=== PATIENT | male | born 1970 | race Caucasian/White ===

== ENCOUNTER 2017-03-29 11:53 | Emergency (ER) | payer MEDICAID, OTHER ==
[~2017-03-29] VITALS: Wt 93.5 kg
[~2017-03-29 11:53] MED LIST: DOCU-144 PO; HYDR-3498 PO
--- NOTE | 2017-03-29 13:17 | ERD ---
ER Documentation Chief Complaint Date/Time DATE: 03/29/17 TIME: 13:13 Chief Complaint LEFT ARM NUMBNESS AND TINGLING WITH NO TRAUMA. NO CP OR SOB. NO NEURO DEF HPI This is a 46-year-old male resenting to emergency department of left shoulder/ neck pain with left hand numbness and tingling 1 week. Patient states symptoms have been worsening. No recent fall or trauma to area. No loss of sensation. No laceration or rash. Patient has full mobility to left arm. No fevers or chills. No chest pain, shortness breath or difficulty breathing. No chest pressure. Patient did not take any medication at home for this. ROS All systems reviewed and are negative except as per history of present illness. Medications Home Meds Active Scripts Famotidine* (Pepcid*) 20 Mg Tablet, 20 MG PO BID for 4 Days, TAB Prov:LONG JAIMES NP 03/29/17 Hydrocodone/Acetaminophen ([place] 5-325 Tablet) 1 Each Tablet, 1 EACH PO Q6, #7 TAB Prov:LONG JAIMES NP 03/29/17 Ibuprofen* (Motrin*) 600 Mg Tab, 600 MG PO Q6, #15 TAB Prov:LONG JAIMES NP 03/29/17 Docusate Sodium* (Colace*) 100 Mg Capsule, 100 MG PO BID, #30 CAP Prov:KADE JOHNSON PA-C 01/16/16 Hydrocodone Bit-Acetaminophen* ([place]*) 5-325 Mg Tab, 1 TAB PO Q6 Y for PAIN, # 7 TAB Prov:KADE JOHNSON PA-C 01/16/16 Allergies Allergies: Coded Allergies: No Known Allergy (Unverified , 01/16/16) PMhx/Soc History of Surgery: Yes (testicular surgery) Anesthesia Reaction: No Hx Neurological Disorder: No Hx Respiratory Disorders: No Hx Cardiac Disorders: No Hx Psychiatric Problems: No Hx Miscellaneous Medical Probl: No Hx Alcohol Use: No Hx Substance Use: No Hx Tobacco Use: Yes Physical Exam Vitals Vital Signs Date Time Temp Pulse Resp B/P Pulse Ox O2 Delivery O2 Flow Rate FiO2 03/29/17 15:40 98.2 67 21 124/83 100 Room Air 03/29/17 11:56 98.6 79 20 168/98 97 Physical Exam Const: Alert, no acute distress Head: Atraumatic Eyes: Normal Conjunctiva ENT: Normal External Ears, Nose and Mouth. Neck: Full range of motion..~ No meningismus. Resp: Clear to auscultation bilaterally Cardio: Regular rate and rhythm, no murmurs Abd: Soft, non tender, non distended. Normal bowel sounds Skin: No petechiae or rashes Back: No midline or flank tenderness Ext: No edema. Patient has full mobility of left shoulder and neck. Full extension and flexion. Full mobility to left elbow and left wrist. Able to supinate and pronate without difficulty. Radial pulses 2+ bilaterally. Capillary refill less than 3 seconds. Neur: Awake and alert Psych: Normal Mood and Affect Result Diagram: 03/29/17 1320 03/29/17 1320 Results 24 hrs Laboratory Tests Test 03/29/17 13:20 White Blood Count 9.610^3/ul Red Blood Count 5.1510^6/ul Hemoglobin 15.2g/dl Hematocrit 45.3% Mean Corpuscular Volume 88.0fl Mean Corpuscular Hemoglobin 29.5pg Mean Corpuscular Hemoglobin Concent 33.6g/dl Red Cell Distribution Width 13.1% Platelet Count 84160^3/UL Mean Platelet Volume 9.5fl Neutrophils % 38.6% Lymphocytes % 46.6% Monocytes % 6.0% Eosinophils % 8.2% Basophils % 0.4% Nucleated Red Blood Cells % 0.0/100WBC Neutrophils # 3.710^3/ul Lymphocytes # 4.510^3/ul Monocytes # 0.610^3/ul Eosinophils # 0.810^3/ul Basophils # 0.010^3/ul Nucleated Red Blood Cells # 0.010^3/ul Sodium Level 144mmol/L Potassium Level 4.0mmol/L Chloride Level 105mmol/L Carbon Dioxide Level 24mmol/L Anion Gap 19 Blood Urea Nitrogen 10mg/dl Creatinine 0.82mg/dl Glucose Level 100mg/dl Calcium Level 9.3mg/dl Troponin I < 0.012ng/ml Current Medications Medications (Trade) Dose Ordered Sig/Yanci Route PRN Reason Start Time Stop Time Status Last Admin Dose Admin Ibuprofen (Motrin) 600 mg ONCE ONCE PO 03/29/17 13:30 03/29/17 13:31 DC 03/29/17 13:43 Acetaminophen/ Hydrocodone Bitart ([place] (5/325)) 1 tab ONCE ONCE PO 03/29/17 13:30 03/29/17 13:31 DC 03/29/17 13:43 Miscellaneous Medication (Gi Cocktail (2)) 40 ml ONCE ONCE PO 03/29/17 15:00 03/29/17 15:01 DC 03/29/17 15:01 Lorazepam (Ativan) 0.5 mg ONCE ONCE PO 03/29/17 15:00 03/29/17 15:01 DC 03/29/17 15:01 Procedures/MDM [place] [id number] [facility] Main Line: [phone] DIAGNOSTIC IMAGING REPORT Patient: NICK TRAMMELL : 1970 Age: 46 Sex: M MR #: [id number] DOS: 03/29/17 1301 Ordering MD: LONG JAIMES NP Location: [facility] Room/Bed: PROCEDURE: XR Cervical Spine. CLINICAL INDICATION: Neck pain TECHNIQUE: AP, lateral, and open-mouth odontoid views of the cervical spine were performed. The images were reviewed on a PACS workstation. COMPARISON: None. FINDINGS: The cervical spine is aligned without evidence of fractures or subluxations. Vertebral body and disk heights appear within normal limits. No acute fractures or subluxations. Odontoid base and lateral masses are aligned. The prevertebral soft tissues are normal. No radiopaque foreign bodies are identified. IMPRESSION: 1. Unremarkable cervical spine x-rays series. [place] [address] [facility] Main Line: [phone] DIAGNOSTIC IMAGING REPORT Patient: NICK TRAMMELL : 1970 Age: 46 Sex: M MR #: [id number] DOS: 03/29/17 1301 Ordering MD: LONG JAIMES NP Location: [facility] Room/Bed: PROCEDURE: XR Shoulder. CLINICAL INDICATION: Left shoulder pain. TECHNIQUE: Three views of the left shoulder are available for review. COMPARISON: None available FINDINGS: The osseous structures, articular spaces, and surrounding soft tissues of the left shoulder are intact. No acute fracture or dislocation is seen. The glenohumeral joint is unremarkable. The acromioclavicular joint is grossly unremarkable. The visualized portions of the left clavicle and upper left rib cage are equally unremarkable. IMPRESSION: 1. Unremarkable left shoulder x-ray series. 2. No acute fracture or dislocation is seen. [place] [address] [facility] Main Line: [phone] DIAGNOSTIC IMAGING REPORT Patient: NICK TRAMMELL : 1970 Age: 46 Sex: M MR #: [id number] DOS: 03/29/17 0000 Ordering MD: LONG JAIMES NP Location: [facility] Room/Bed: PROCEDURE: XR Chest. CLINICAL INDICATION: Chest pain TECHNIQUE: Single frontal chest x-ray. COMPARISON: None. FINDINGS: The lungs are clear of acute infiltrates, edema, effusions, or masses.. The cardiomediastinal silhouette is unremarkable. The osseous structures are intact. IMPRESSION: No acute cardiopulmonary disease. MDM: This is a 46-year-old male presenting to emergency department with left shoulder/neck pain and numbness and tingling to left hand. Physical exam is overall unremarkable. Vital signs are stable. Chest x-ray reviewed by radiologist as no acute cardiopulmonary disease. X-ray left shoulder reviewed by radiologist is unremarkable. No acute fracture dislocation is seen. X-ray cervical spine reviewed by radiologist is unremarkable. Patient given ibuprofen and [place] p.o. while in the ED. Upon reassessment, patient continues to have severe pain. Consulted Dr. Blair regarding this patient who also examined patient at bedside. CBC shows no significant anemia or infection. BMP shows no significant electrolyte imbalance. Troponin is negative. Dr. Blair suggested giving patient GI cocktail and Ativan. Upon reassessment, patient states pain is now tolerable. Differential diagnosis includes but not limited to pneumonia, bronchitis, pleurisy, costochondritis, gastroesophageal reflux,musculoskeletal chest pain and esophageal spasm. Low suspicion for acute coronary syndrome, pulmonary embolism, pneumothorax, aortic dissection and myocardial infarction. Patient is appropriate for outpatient management and will be discharged as stable. Patient was given prescription for ibuprofen, [place] and Pepcid. Instructed patient to follow up with primary care provider in the next 24-48 hours. Return to ED for worsening pain, abdominal pain, vomiting, diarrhea, high fever or any new or worsening symptoms. Patient verbalizes understanding. All questions answered at discharge. Departure Diagnosis: Primary Impression: Arm paresthesia, left Condition: Stable LONG JAIMES NP Mar 29, 2017 13:17
[2017-03-29] MEDS ORDERED: IBUPROFEN 600 MG TAB PO ONE (13:30)
[2017-03-29] MEDS ORDERED: HYDROCODONE/APAP (5/325) TAB PO ONE (13:30)
--- NOTE | 2017-03-29 13:49 | RADRPT ---
PROCEDURE: XR Shoulder. CLINICAL INDICATION: Left shoulder pain. TECHNIQUE: Three views of the left shoulder are available for review. COMPARISON: None available FINDINGS: The osseous structures, articular spaces, and surrounding soft tissues of the left shoulder are inta ct. No acute fracture or dislocation is seen. The glenohumeral joint is unremarkable. The acromioc lavicular joint is grossly unremarkable. The visualized portions of the left clavicle and upper lef t rib cage are equally unremarkable. IMPRESSION: 1. Unremarkable left shoulder x-ray series. 2. No acute fracture or dislocation is seen. RPTAT: QQ .Neeraj Hickey MD, MD Date Time Electronically viewed and signed by .Neeraj Hickey MD, on 03/29/2017 13:48 .L/
--- NOTE | 2017-03-29 13:50 | RADRPT ---
PROCEDURE: XR Cervical Spine. CLINICAL INDICATION: Neck pain TECHNIQUE: AP, lateral, and open-mouth odontoid views of the cervical spine were performed. The im ages were reviewed on a PACS workstation. COMPARISON: None. FINDINGS: The cervical spine is aligned without evidence of fractures or subluxations. Vertebral body and dis k heights appear within normal limits. No acute fractures or subluxations. Odontoid base and latera l masses are aligned. The prevertebral soft tissues are normal. No radiopaque foreign bodies are id entified. IMPRESSION: 1. Unremarkable cervical spine x-rays series. RPTAT: QQ .Neeraj Hickey MD, MD Date Time Electronically viewed and signed by .Neeraj Hickey MD, on 03/29/2017 13:50 .L/
--- NOTE | 2017-03-29 13:51 | RADRPT ---
PROCEDURE: XR Chest. CLINICAL INDICATION: Chest pain TECHNIQUE: Single frontal chest x-ray. COMPARISON: None. FINDINGS: The lungs are clear of acute infiltrates, edema, effusions, or masses.. The cardiomediastinal silho uette is unremarkable. The osseous structures are intact. IMPRESSION: No acute cardiopulmonary disease. RPTAT: QQ .Neeraj Hickey MD, MD Date Time Electronically viewed and signed by .Neeraj Hickey MD, MD on 03/29/2017 13:50 .L/
[2017-03-29 14:03] LABS: BASOPHILS % 0.4 % (0.0-2.0); EOSINOPHILS # 0.8 10^3/ul (0.0-0.5); EOSINOPHILS % 8.2 % (0.0-7.0); HEMATOCRIT 45.3 % (42.0-52.0); HEMOGLOBIN 15.2 g/dl (14.0-18.0); LYMPHOCYTES # 4.5 10^3/ul (0.8-2.9); LYMPHOCYTES % 46.6 % (15.0-51.0); MEAN CORPUSCULAR HEMOGLOBIN 29.5 pg (29.0-33.0); MEAN CORPUSCULAR HGB CONC 33.6 g/dl (32.0-37.0); MEAN PLATELET VOLUME 9.5 fl (7.4-10.4); MONOCYTE # 0.6 10^3/ul (0.3-0.9); NEUTROPHIL # 3.7 10^3/ul (1.6-7.5); NEUTROPHILS % 38.6 % (39.0-77.0); PLATELET COUNT 235 10^3/UL (140-415); RED BLOOD COUNT 5.15 10^6/ul (4.70-6.10); RED CELL DISTRIBUTION WIDTH 13.1 % (11.5-14.5); WHITE BLOOD COUNT 9.6 10^3/ul (4.8-10.8)
[2017-03-29 14:21] LABS: ANION GAP 19 (8-16); BLOOD UREA NITROGEN 10 mg/dl (7-20); CALCIUM 9.3 mg/dl (8.4-10.2); CARBON DIOXIDE 24 mmol/L (21-31); CHLORIDE 105 mmol/L (97-110); CREATININE 0.82 mg/dl (0.61-1.24); GLUCOSE 100 mg/dl (70-220); SODIUM 144 mmol/L (135-144)
[2017-03-29 14:37] LABS: TROPONIN-I < 0.012 ng/ml (0.00-0.12)
[2017-03-29] MEDS ORDERED: LORAZEPAM 0.5 MG TAB PO ONE (15:00)
[2017-03-29] MEDS ORDERED: LIDOCAINE/MYLANTA 40 ML BTL PO ONE (15:00)
[2017-03-29] MEDS ORDERED: IBUP-1542 PO (15:21)
[2017-03-29] MEDS ORDERED: HYDR-906 PO (15:21)
[2017-03-29] MEDS ORDERED: FAMO-96 PO (15:27)
[2017-03-29 15:40] VITALS: BP 124/83; PULSE 67; RESP 21; TEMP 98.2
[2017-03-30] MEDS ORDERED: HYDR-902 PO (20:22)
== END 2017-03-29 15:41 | disposition home or self-care (01) ==
LOC: FTE 11:53
DX: R20.2 Paresthesia of skin (principal); R07.9 Chest pain, unspecified; Z87.891 Personal history of nicotine dependence
CPT/HCPCS: 71010; 72040; 73030; 80048; 84484; 85025; 93005; Z7502; Z7610

== ENCOUNTER 2017-03-30 19:54 | Emergency (ER) | payer MEDICAID ==
[~2017-03-30] VITALS: Ht 175.3 cm; Wt 95.0 kg
[~2017-03-30 19:54] MED LIST changes: +FAMO-96 PO; +HYDR-906 PO; +IBUP-1542 PO
[2017-03-30 20:03] VITALS: Ht 175.3 cm; Wt 95.0 kg
[2017-03-30] MEDS ORDERED: ONDANSETRON (ODT) 4 MG TAB ODT STA (20:21)
[2017-03-30] MEDS ORDERED: HYDR-902 PO (20:22)
[2017-03-30] MEDS ORDERED: HYDROCODONE/APAP (10/325) TAB PO ONE (20:30)
--- NOTE | 2017-03-30 20:57 | ERD ---
ER Documentation Chief Complaint Date/Time DATE: 03/30/17 TIME: 20:54 Chief Complaint left hand/forearm pain x 1 week, denies injury. Seen in ED 03/29/17 HPI Patient is a 46-year-old male with no medical problems who presents with left- sided arm pain. This pain started 1 week ago and has been constant. He was seen yesterday for the same and had a full workup including laboratory studies, x-rays of the neck, shoulder, and arm as well as EKG. He was given ibuprofen and [place] but is still having pain. He is right-handed. He does not currently have a primary doctor. Upon review of old medical records this is the patient' s third visit to the ER since 2016. The patient says that it is worse with palpation or with movement. ROS All systems reviewed and are negative except as per history of present illness. Medications Home Meds Active Scripts Hydrocodone/Acetaminophen ([place] 10-325 Tablet) 1 Each Tablet, 1 TAB PO Q6H Y for PAIN, #7 TAB Prov:KELECHI LAMB MD 03/30/17 Famotidine* (Pepcid*) 20 Mg Tablet, 20 MG PO BID for 4 Days, TAB Prov:LONG JAIMES NP 03/29/17 Hydrocodone/Acetaminophen ([place] 5-325 Tablet) 1 Each Tablet, 1 EACH PO Q6, #7 TAB Prov:LONG JAIMES NP 03/29/17 Ibuprofen* (Motrin*) 600 Mg Tab, 600 MG PO Q6, #15 TAB Prov:LONG JAIMES NP 03/29/17 Docusate Sodium* (Colace*) 100 Mg Capsule, 100 MG PO BID, #30 CAP Prov:KADE JOHNSON PA-C 01/16/16 Hydrocodone Bit-Acetaminophen* ([place]*) 5-325 Mg Tab, 1 TAB PO Q6 Y for PAIN, # 7 TAB Prov:KADE JOHNSON PA-C 01/16/16 Allergies Allergies: Coded Allergies: No Known Allergy (Unverified , 01/16/16) PMhx/Soc History of Surgery: Yes (testicular surgery) Anesthesia Reaction: No Hx Neurological Disorder: No Hx Respiratory Disorders: No Hx Cardiac Disorders: No Hx Psychiatric Problems: No Hx Miscellaneous Medical Probl: No Hx Alcohol Use: No Hx Substance Use: No Hx Tobacco Use: Yes Smoking Status: Current some day smoker FmHx Family History: No coronary disease Physical Exam Vitals Vital Signs Date Time Temp Pulse Resp B/P Pulse Ox O2 Delivery O2 Flow Rate FiO2 03/30/17 20:03 98.2 68 18 139/90 100 Physical Exam Const: Mild distress secondary to pain Head: Atraumatic Eyes: Normal Conjunctiva ENT: Normal External Ears, Nose and Mouth. Neck: Full range of motion..~ No meningismus. Resp: Clear to auscultation bilaterally Cardio: Regular rate and rhythm, no murmurs Abd: Soft, non tender, non distended. Normal bowel sounds Skin: No petechiae or rashes Back: No midline or flank tenderness Ext: Tenderness to palpation the left upper extremity from the shoulder to the elbow painfulness to palpation, no crepitus or swelling noted, no signs of infection, full range of motion, 2+ pulses in the bilateral upper extremities, capillary refill normal bilaterally Neur: Awake and alert, nerve roots of the left upper extremity are intact, able to give a thumbs up, able to touch all fingers to thumb Psych: Normal Mood and Affect Results 24 hrs Current Medications Medications (Trade) Dose Ordered Sig/Yanci Route PRN Reason Start Time Stop Time Status Last Admin Dose Admin Acetaminophen/ Hydrocodone Bitart ([place] (10/325)) 1 tab ONCE ONCE PO 03/30/17 20:30 03/30/17 20:31 DC 03/30/17 20:25 Ondansetron HCl (Zofran Odt) 4 mg ONCE STAT ODT 03/30/17 20:21 03/30/17 20:22 DC 03/30/17 20:24 Procedures/MDM Smoking Cessation Therapy: Pt. was lectured for greater than 3 minutes on the health risks of continued smoking and the benefits of cessation. Splint Note Type: Sling Location: Left upper extremity Indication: Left upper extremity pain Splint Assessment: Neurovascularly intact post splint placement with good fit. Patient is a 46-year-old male presents with left-sided arm pain. He has no chest pain at this time. His symptoms are very musculoskeletal in nature. He had a full workup yesterday along with laboratory studies, x-rays, and EKG. At this point I doubt acute coronary syndrome, pneumonia, pneumothorax, or pulmonary embolism. I doubt aortic dissection. He has equal pulses bilaterally. The patient will be discharged with a prescription for [place] 10/ 325. He will need close follow-up with a local clinics within 24-48 hours. He can return for any worsening symptoms. Departure Diagnosis: Primary Impression: Arm pain Laterality: left Qualified Code: M79.602 - Pain of left upper extremity Condition: Fair Patient Instructions: Radiculopathy, Cervical [facility]errals[facility] Usted se mitchell hecho un examen mdico de control que le indica que no est en june condicin que requiera tratamiento urgente en el Departamento de Emergencia. Un estudio ms profundo y el tratamiento de puga condicin pueden esperar sin ningn riesgo hasta que usted sea atendida/o en el consultorio de puga mdico o june cl bharat. Es responsabilidad suya arreglar june luis para el seguimiento del nahun. MANEJO DE CONDICIONES NO URGENTES EN EL FUTURO 1) Si usted tiene un mdico de atencin primaria: Usted debera llamar a puga mdico de atencin primaria antes de venir al departamento de emergencia. Despus de las horas de consultorio, puga doctor o puga asociado/a est disponible por telfono. El mdico o enfermero de marina en el servicio telefnico puede asesorarle por maranda medio para atender el problema, o nahun contrario se puede programar june ulis. 2) Si usted no tiene un mdico de atencin primaria: Llame al mdico o clnica de referencia que aparece abajo daya las horas de consultorio para hacer june luis para que le vean. CLINICAS: [facility] [phone] [facility] [phone] [facility] [phone] [facility] [phone] [facility]. [place] [id number] [phone] [facility] [phone] [address] Additional Instructions: Llame al doctor MAANA y kasia june LUIS PARA DENTRO DE 1-2 KURTZ.Dgale a la secretaria que nosotros le instruimos hacer esta luis.Avise o llame si puga condicin se empeora antes de la luis. Regresa aqui si peor o no mejor. KELECHI LAMB MD Mar 30, 2017 20:57
== END 2017-03-30 20:36 | disposition home or self-care (01) ==
LOC: FTE 19:54
DX: M79.602 Pain in left arm (principal); F17.210 Nicotine dependence, cigarettes, uncomplicated
CPT/HCPCS: Z7502; Z7610; 99283

== ENCOUNTER 2018-12-28 20:27 | Emergency (ER) | payer SELFPAY ==
[~2018-12-28] VITALS: Ht 172.7 cm; Wt 98.6 kg
[~2018-12-28 20:27] MED LIST changes: +HYDR-3980 PO; +HYDR-4011 PO; -HYDR-906 PO
[2018-12-28 21:07] VITALS: Ht 172.7 cm; Wt 98.6 kg
[2018-12-28] MEDS ORDERED: HYDROmorphONE 2 MG/ML SYG IM STA (21:31)
[2018-12-28] MEDS ORDERED: ONDANSETRON (ODT) 4 MG TAB ODT STA (21:31)
--- NOTE | 2018-12-28 21:35 | ERD ---
ER Documentation Chief Complaint Chief Complaint L testicular pain 06/03 with blood from penis X 2 hrs HPI 48-year-old male presents with complaint of left testicular pain for the past 2 hours. States pain is currently 10 out of 10. In addition he states that there is been blood dripping out of the urethra. Has not taken any treatments. Denies any unprotected intercourse. States that he had this problem once in the past about 5 years ago and the doctor told him he had a mass in his scrotum that would require surgery but is never gone the surgery. Also states that he is having dysuria states that his diabetes but he does not take any medication. In addition he states his been having some pubic suprapubic tenderness radiating to his lower back. Denies allergies. ROS All systems reviewed and are negative except as per history of present illness. Medications Home Meds Active Scripts Ibuprofen* (Motrin*) 600 Mg Tab, 600 MG PO Q6 for pain, #30 TAB Prov:GO ALEXANDER 12/29/18 Hydrocodone/Acetaminophen ([place] 5-325 Tablet) 1 Each Tablet, 1 TAB PO Q6H PRN for PAIN, #15 TAB Prov:GO ALEXANDER 12/29/18 Levofloxacin* (Levaquin*) 500 Mg Tablet, 500 MG PO DAILY for infection for 10 Days, TAB Prov:GO ALEXANDER 12/29/18 Hydrocodone/Acetaminophen ([place] 10-325 Tablet) 1 Each Tablet, 1 TAB PO Q6H PRN for PAIN, #7 TAB Prov:KELECHI LAMB MD 03/30/17 Famotidine* (Pepcid*) 20 Mg Tablet, 20 MG PO BID for 4 Days, TAB Prov:LONG JAIMES NP 03/29/17 Hydrocodone/Acetaminophen ([place] 5-325 Tablet) 1 Each Tablet, 1 EACH PO Q6, #7 TAB Prov:LONG JAIMES NP 03/29/17 Ibuprofen* (Motrin*) 600 Mg Tab, 600 MG PO Q6, #15 TAB Prov:LONG JAIMES NP 03/29/17 Docusate Sodium* (Colace*) 100 Mg Capsule, 100 MG PO BID, #30 CAP Prov:KADE JOHNSON PA-C 01/16/16 Hydrocodone Bit-Acetaminophen* ([place]*) 5-325 Mg Tab, 1 TAB PO Q6 PRN for PAIN, #7 TAB Prov:KADE JOHNSON PA-C 01/16/16 Allergies Allergies: Coded Allergies: No Known Allergy (Unverified , 01/16/16) PMhx/Soc History of Surgery: Yes (testicular surgery) Anesthesia Reaction: No Hx Neurological Disorder: No Hx Respiratory Disorders: No Hx Cardiac Disorders: No Hx Psychiatric Problems: No Hx Miscellaneous Medical Probl: No Hx Alcohol Use: No Hx Substance Use: No Hx Tobacco Use: Yes FmHx Family History: No diabetes, No coronary disease, No other Physical Exam Vitals Vital Signs Date Temp Pulse Resp B/P (MAP) Pulse Ox O2 O2 Flow FiO2 Time Delivery Rate 12/28/18 97.1 68 18 137/63 98 21:07 (87) Physical Exam Const: No acute distress Head: Atraumatic Eyes: Normal Conjunctiva ENT: Normal External Ears, Nose and Mouth. Neck: Full range of motion. No meningismus. Resp: Clear to auscultation bilaterally Cardio: Regular rate and rhythm, no murmurs Abd: Tenderness to palpation in the suprapubic area. Skin: No petechiae or rashes Back: No midline or flank tenderness Ext: No cyanosis, or edema Neur: Awake and alert Psych: Normal Mood and Affect : Testicles are tender to palpation. There is no discharge noted. Result Diagram: 12/29/18 0010 12/29/18 0010 Results 24 hrs Laboratory Tests Test 12/28/18 22:15 12/29/18 00:10 Urine Color YELLOW Urine Clarity CLEAR Urine pH 6.0 Urine Specific Russell 1.015 Urine Ketones NEGATIVE mg/dL Urine Nitrite NEGATIVE mg/dL Urine Bilirubin NEGATIVE mg/dL Urine Urobilinogen NEGATIVE mg/dL Urine Leukocyte Esterase NEGATIVE Karen/ul Urine Microscopic RBC 2 /HPF Urine Microscopic WBC 0 /HPF Urine Hemoglobin 1+ mg/dL Urine Glucose NEGATIVE mg/dL Urine Total Protein NEGATIVE mg/dl White Blood Count 11.8 10^3/ul Red Blood Count 5.03 10^6/ul Hemoglobin 14.9 g/dl Hematocrit 46.6 % Mean Corpuscular Volume 92.6 fl Mean Corpuscular Hemoglobin 29.6 pg Mean Corpuscular Hemoglobin Concent 32.0 g/dl Red Cell Distribution Width 13.1 % Platelet Count 229 10^3/UL Mean Platelet Volume 9.2 fl Immature Granulocytes % 0.300 % Neutrophils % 50.6 % Lymphocytes % 41.0 % Monocytes % 6.9 % Eosinophils % 0.9 % Basophils % 0.3 % Nucleated Red Blood Cells % 0.0 /100WBC Immature Granulocytes # 0.030 10^3/ul Neutrophils # 6.0 10^3/ul Lymphocytes # 4.8 10^3/ul Monocytes # 0.8 10^3/ul Eosinophils # 0.1 10^3/ul Basophils # 0.0 10^3/ul Nucleated Red Blood Cells # 0.0 10^3/ul Sodium Level 141 mmol/L Potassium Level 4.3 mmol/L Chloride Level 103 mmol/L Carbon Dioxide Level 30 mmol/L Anion Gap 8 Blood Urea Nitrogen 12 mg/dl Creatinine 0.83 mg/dl Est Glomerular Filtrat Rate mL/min > 60 mL/min Glucose Level 142 mg/dl Calcium Level 9.5 mg/dl Total Bilirubin 0.6 mg/dl Direct Bilirubin 0.00 mg/dl Indirect Bilirubin 0.6 mg/dl Aspartate Amino Transf (AST/SGOT) 17 IU/L Alanine Aminotransferase (ALT/SGPT) 27 IU/L Alkaline Phosphatase 76 IU/L Total Protein 7.3 g/dl Albumin 4.4 g/dl Globulin 2.90 g/dl Albumin/Globulin Ratio 1.51 Current Medications Medications Dose Sig/Yanci Start Time Status Last (Trade) Ordered Route PRN Stop Time Admin Dose Reason Admin 1 mg ONCE STAT 12/28/18 DC 12/28/18 Hydromorphone IM 21:31 12/28/18 21:42 HCl 21:34 (Dilaudid) Ondansetron 8 mg ONCE STAT 12/28/18 DC 12/28/18 HCl (Zofran ODT 21:31 12/28/18 21:41 Odt) 21:34 Sodium 1,000 ml @ Q1H STAT 12/28/18 DC 12/29/18 Chloride 1,000 mls/hr IV 23:51 12/29/18 00:26 00:50 1 mg ONCE STAT 12/29/18 DC 12/29/18 Hydromorphone IV 00:18 12/29/18 00:26 HCl 00:19 (Dilaudid) Sodium 100 ml @ ud STK-MED 12/29/18 DC 12/29/18 Chloride ONCE .ROUTE 01:16 12/29/18 01:17 01:17 Iohexol 150 ml STK-MED 12/29/18 DC 12/29/18 (Omnipaque ONCE .ROUTE 01:16 12/29/18 01:17 300mg/ ml) 01:17 Procedures/MDM DIAGNOSTIC IMAGING REPORT Patient: NICK TRAMMELL : 1970 Age: 48 Sex: M [id number] DOS: 12/28/18 2351 Ordering MD: GO ALEXANDER Location: [facility] Room/Bed: PROCEDURE: CT Abdomen and Pelvis with contrast. CLINICAL INDICATION: Abdominal pain TECHNIQUE: CT scan of the abdomen and pelvis with contrast was performed on a multi-detector high-resolution CT scanner. The patient was scanned following intravenous administration of 100 ml Isovue 300 nonionic contrast. Coronal and sagittal reformatted images obtained from the axial source images. Images were reviewed on a high-resolution PACS workstation. Exam CTDI 19.06 mGy Exam DLP 1239.86 mGy-cm DICOM images are available. One or more of the following dose reduction techniques were utilized: 1.) Automated exposure control 2.) Adjustment of the mA +/- kV according to patient's size 3.) Use of iterative reconstruction technique. COMPARISON: CT 01/16/2016. FINDINGS: CT abdomen: LOWER THORAX: A 5 mm calcified granuloma is identified at the right lung base. Small calcified right hilar lymph nodes also identified. LIVER AND GALLBLADDER: There are multiple sub centimeter low density lesions within the left and right lobes of the liver, too small to definitively characterize and presumably cysts. The liver is otherwise unremarkable. A 3 mm calcified density is noted along the dependent margin of the gallbladder wall. No appreciable wall thickening or evidence of pericholecystic fluid. SPLEEN: Normal. PANCREAS: Normal. ADRENAL GLANDS: Normal. KIDNEYS: There is a 4.5 x 3.3 x 2.9 cm bilobed cyst at the lower pole of the right kidney which is unchanged compared with previous imaging. The kidneys otherwise enhance symmetrically and there is no hydronephrosis or abnormal perinephric fluid. VASCULATURE: Negative for aortic aneurysm or dissection. LYMPH NODES: No significant retroperitoneal or mesenteric lymphadenopathy. BOWEL AND MESENTERY: Stomach and small bowel are unremarkable. A normal appendix is identified. The large bowel is unremarkable. CT pelvis: Urinary bladder and pelvic organs appear normal. No significant pelvic free fluid or evidence of an inflammatory process. Bones: Vacuum changes and disc degeneration at L4-5, regional bones otherwise intact. Superficial soft tissues are unremarkable. IMPRESSION: 1. No acute process in the imaged abdomen or pelvis. 2. Exophytic bilobed lower pole right renal cyst, unchanged. 3. Calcified granuloma at the right lung base. Multiple small calcified right hilar lymph nodes, also likely sequela of remote granulomatous disease. 4. Normal appendix. RPTAT: [facility] Physician Yocasta Date Time Electronically viewed and signed by Physician Yocasta on 12/29/2018 01:50 xB/ CC: GO ALEXANDER [id number] DIAGNOSTIC IMAGING REPORT Patient: NICK TRAMMELL : 1970 Age: 48 Sex: M MR #: [id number] DOS: 12/28/182130 Ordering MD: GO ALEXANDER Location: [facility] Room/Bed: PROCEDURE: SCROTAL ULTRASOUND: CLINICAL INDICATION: 48-year of age, male. Left scrotal pain. TECHNIQUE: Multiple transverse and sagittal robison scale, color, and spectral Doppler sonographic images of the scrotum were obtained. COMPARISON: None available FINDINGS: RIGHT SCROTUM: Testis measurements: 4 x 1.8 x 2.6 cm (Vol 9.6 mL). Testis appearance: Normal. No intratesticular masses. Color and spectral Doppler tracings: Normal. Epididymis: There is a 0.5 cm cyst in the head of the epididymis. Otherwise normal. Other: There are prominent veins in the right scrotal sac measuring up to 3.3 mm in keeping with a mild varicocele. Mild right hydrocele is likely physiologic. LEFT SCROTUM: Testis measurements: 3 x 1.5 x 2.6 cm (Vol 6 mL). Testis appearance: Mildly heterogeneous parenchyma. No focal masses. Left testicle is smaller than the right. Color and spectral Doppler tracings: Normal. Epididymis: Normal. Other: No hydrocele or varicocele. Additional comment: None. IMPRESSION: 1. Negative for evidence of testicular torsion or abnormal inflammation in either scrotal sac. 2. Mild right varicocele without evidence of a left varicocele. Suggest further evaluation with CT of the abdomen and pelvis to evaluate for retroperitoneal lymphadenopathy or a retroperitoneal mass that could be causing a right varicocele. 3. Left testicle is relatively small and mildly inhomogeneous that may be due to an old insult. Negative for a testicular mass. RPTAT: [facility]CTS Physician Elise Date Time Electronically viewed and signed by Physician Elise on 12/28/2018 23:30 CS/ CC: GO ALEXANDER [id number] MDM: Ultrasound was performed and results within normal limits aside from mild hydrocele which not account for his pain. Therefore CT was ordered which was also within normal limits. At this point am going to treat him empirically for possible infection with 10-day course of levofloxacin. Low suspicion for testicular torsion, strangulated hernia, or any other emergent condition. Patient advised to follow-up with urology as this is not the first time this happened. Patient discharged with strict ER precautions. Patient advised to follow up with PMD. All questions answered at discharge. Departure Diagnosis: Primary Impression: Pain in testicle Condition: Stable GO ALEXANDER December 28, 2018 21:35
[2018-12-28] MEDS ORDERED: SOD CHLORIDE 0.9% 1,000 ML IV STA (23:51)
[2018-12-29] MEDS ORDERED: HYDROmorphONE 2 MG/ML SYG IV STA (00:18)
[2018-12-29] MEDS ORDERED: SOD CHLORIDE 0.9% 100 ML ONE (01:16)
[2018-12-29] MEDS ORDERED: IOHEXOL 300MG/ML 150 ML BTL ONE (01:16)
[2018-12-29] MEDS ORDERED: HYDR-4011 PO (02:08)
[2018-12-29] MEDS ORDERED: IBUP-1542 PO (02:08)
[2018-12-29] MEDS ORDERED: LEVO500T48 PO (02:08)
[2018-12-29 02:34] VITALS: BP 130/87; PULSE 61; RESP 20
== END 2018-12-29 02:36 | disposition home or self-care (01) ==
LOC: FTE 20:27
DX: N50.812 Left testicular pain (principal)
CPT/HCPCS: 36415; 74177; 76870; 80053; 81001; 85025; 96372; 96374; 99285; J1170; J7030; Q9967